=== PATIENT | male | born 1970 | race Caucasian/White ===

== ENCOUNTER 2018-11-10 13:35 | Emergency (ER) | payer MEDICAID ==
[~2018-11-10] VITALS: Ht 165.1 cm; Wt 83.0 kg
[2018-11-10 13:40] VITALS: BP 151/79
[2018-11-10 14:47] LABS: ALBUMIN 3.6 G/DL (3.4-5.0); ANION GAP 12 (8-16); BLOOD UREA NITROGEN 11 MG/DL (7-18); BUN/CREATININE RATIO 12.9 (5.4-32.0); CALCIUM 9.3 MG/DL (8.5-10.1); CHLORIDE 99 MMOL/L (99-107); CREATININE 0.85 MG/DL (0.60-1.10); GLUCOSE 341 MG/DL (70-104); POTASSIUM 4.2 MMOL/L (3.5-5.1); SODIUM 136 MMOL/L (135-145); TOTAL CARBON DIOXIDE 25.5 MMOL/L (24-32); eGFR > 90 ML/MIN
[2018-11-10] MEDS ORDERED: METF-950 PO (14:55)
== END 2018-11-10 15:10 | disposition home or self-care (01) ==
LOC: ER 13:36
DX: E11.9 Type 2 diabetes mellitus without complications (principal)
CPT/HCPCS: 36415; 80048; 82948; 83036; 99283